=== PATIENT | female | born 1980 | race African-American/Black ===

== ENCOUNTER 2018-09-17 15:15 | Emergency (ER) | payer MEDICAID ==
[2018-09-17] MEDS ORDERED: Acetaminophen/HYDROcodone 325-5 MG Tab PO ONE (15:51)
--- NOTE | 2018-09-17 16:06 | EDM.PDOC ---
ED HPI GENERAL MEDICAL PROBLEM - General Chief Complaint: Skin Complaint Stated Complaint: SWOLLEN ARM Time Seen by Provider: 09/17/18 15:35 Source of Information: Reports: Patient History Limitations: Reports: No Limitations - History of Present Illness INITIAL COMMENTS - FREE TEXT/NARRATIVE: Patient is a 38-year-old female who presents to the ED complaining of swelling, redness, and pain to the right arm adjacent to the elbow and triceps. States she had some sores to the inferior border of the tricep and was scratching them yesterday. Developed all symptoms over the past 24hrs. Pain with palpation. No pain with flexion/extension at the elbow. There has been no drainage from the site. She denies any redness streaking up her arm. No shortness of breath, no chest pain, no history of DVT or PE. She is on no control. She admits to smoking one pack every 2 days. Right Elbow Pain Score (Numeric/FACES): 3 - Related Data Allergies Allergy/AdvReac Type Severity Reaction Status Date / Time No Known Allergies Allergy Verified 09/17/18 15:34 Home Meds: Home Meds cephALEXin [Keflex] 500 mg PO Q8H #30 cap 09/17/18 [Rx] Past Medical History - Past Health History Medical/Surgical History: Denies Medical/Surgical History Social & Family History - Tobacco Use Smoking Status *Q: Current Every Day Smoker Years of Tobacco use: 20 Packs/Tins Daily: 0.5 - Recreational Drug Use Recreational Drug Use: No ED ROS GENERAL - Review of Systems Review Of Systems: See Below Constitutional: Denies: Fever, Chills, Malaise, Weakness, Decreased Appetite HEENT: Reports: No Symptoms Respiratory: Reports: No Symptoms Cardiovascular: Reports: No Symptoms Musculoskeletal: Reports: Arm Pain. Denies: Neck Pain, Shoulder Pain Skin: Reports: Erythema ED EXAM, SKIN/RASH Exam: See Below Exam Limited By: No Limitations General Appearance: Alert, WD/WN, No Apparent Distress Ears: Hearing Grossly Normal Nose: Normal Inspection Throat/Mouth: Normal Voice, No Airway Compromise Head: Atraumatic, Normocephalic Neck: Normal Inspection, Supple Respiratory/Chest: No Respiratory Distress, Lungs Clear, Normal Breath Sounds, No Accessory Muscle Use, Chest Non-Tender Cardiovascular: Normal Peripheral Pulses, Regular Rate, Rhythm, No Murmur Peripheral Pulses: 2+: Radial (L), Radial (R) Back Exam: Normal Inspection Extremities: Normal Range of Motion, Other (On examination patient has some old lesions to the inferior border of the triceps proximal to the elbow with increased swelling, redness sick encompassing the superior border of the olecranon, tricep, and lateral medial aspect the arm. Redness extends to the medial aspect of the forearm. No draining lesions noted. No fluctuance. ) Neurological: Alert, Oriented, CN II-XII Intact, Normal Cognition, No Motor/ Sensory Deficits Psychiatric: Normal Affect, Normal Mood Skin: Warm, Dry, Intact, Normal Color Course - Vital Signs Last Recorded V/S: Last Vital Signs Temp 97 F 09/17/18 15:32 Pulse 84 09/17/18 15:32 Resp 16 09/17/18 15:32 BP 130/120 H 09/17/18 15:32 Pulse Ox 98 09/17/18 15:32 - Orders/Labs/Meds Labs: Laboratory Tests 09/17/18 09/17/18 09/17/18 Range/Units 16:10 16:10 16:10 WBC 11.21 H (3.98-10.04) K/mm3 RBC 5.18 (3.98-5.22) M/mm3 Hgb 13.2 (11.2-15.7) gm/L Hct 41.7 (34.1-44.9) % MCV 80.5 (79.4-94.8) fl MCH 25.5 L (25.6-32.2) pg MCHC 31.7 L (32.2-35.5) g/dl RDW Std Deviation 49.3 H (36.4-46.3) fL Plt Count 314 (182-369) K/mm3 MPV 10.7 (9.4-12.3) fl Neutrophils % (Manual) 73 H (40-60) % Band Neutrophils % 0 (0-10) % Lymphocytes % (Manual) 26 (20-40) % Atypical Lymphs % 0 % Monocytes % (Manual) 0 L (2-10) % Eosinophils % (Manual) 1 (0.7-5.8) % Basophils % (Manual) 0 L (0.1-1.2) Platelet Estimate Adequate RBC Morph Comment Normal PT 10.8 (9.5-12.1) SECONDS INR 0.99 APTT 31 (24-31) SECONDS Sodium 137 (136-145) mEq/L Potassium 4.0 (3.5-5.1) mEq/L Chloride 105 (98-107) mEq/L Carbon Dioxide 21 (21-32) mEq/L Anion Gap 15.0 (5-15) BUN 15 (7-18) mg/dL Creatinine 0.8 (0.55-1.02) mg/dL Est Cr Clr Drug Dosing 94.54 mL/min Estimated GFR (MDRD) > 60 (>60) mL/min BUN/Creatinine Ratio 18.8 H (14-18) Glucose 84 (74-106) mg/dL Calcium 9.0 (8.5-10.1) mg/dL Total Bilirubin 0.4 (0.2-1.0) mg/dL AST 14 L (15-37) U/L ALT 24 (14-59) U/L Alkaline Phosphatase 78 (46-116) U/L C-Reactive Protein 2.1 H* (<1.0) mg/dL Total Protein 7.7 (6.4-8.2) g/dl Albumin 3.4 (3.4-5.0) g/dl Globulin 4.3 gm/dL Albumin/Globulin Ratio 0.8 L (1-2) HCG, Qual (NEGATIVE) 09/17/18 Range/Units 16:10 WBC (3.98-10.04) K/mm3 RBC (3.98-5.22) M/mm3 Hgb (11.2-15.7) gm/L Hct (34.1-44.9) % MCV (79.4-94.8) fl MCH (25.6-32.2) pg MCHC (32.2-35.5) g/dl RDW Std Deviation (36.4-46.3) fL Plt Count (182-369) K/mm3 MPV (9.4-12.3) fl Neutrophils % (Manual) (40-60) % Band Neutrophils % (0-10) % Lymphocytes % (Manual) (20-40) % Atypical Lymphs % % Monocytes % (Manual) (2-10) % Eosinophils % (Manual) (0.7-5.8) % Basophils % (Manual) (0.1-1.2) Platelet Estimate RBC Morph Comment PT (9.5-12.1) SECONDS INR APTT (24-31) SECONDS Sodium (136-145) mEq/L Potassium (3.5-5.1) mEq/L Chloride (98-107) mEq/L Carbon Dioxide (21-32) mEq/L Anion Gap (5-15) BUN (7-18) mg/dL Creatinine (0.55-1.02) mg/dL Est Cr Clr Drug Dosing mL/min Estimated GFR (MDRD) (>60) mL/min BUN/Creatinine Ratio (14-18) Glucose (74-106) mg/dL Calcium (8.5-10.1) mg/dL Total Bilirubin (0.2-1.0) mg/dL AST (15-37) U/L ALT (14-59) U/L Alkaline Phosphatase (46-116) U/L C-Reactive Protein (<1.0) mg/dL Total Protein (6.4-8.2) g/dl Albumin (3.4-5.0) g/dl Globulin gm/dL Albumin/Globulin Ratio (1-2) HCG, Qual Negative (NEGATIVE) Meds: Medications Discontinued Medications Generic Name Dose Route Start Last Admin Trade Name Freq PRN Reason Stop Dose Admin Hydrocodone Bitart/Acetaminophen 1 tab 09/17/18 15:51 09/17/18 16:00 Loman 325-5 Mg PO 09/17/18 15:52 1 tab ONETIME ONE Administration Cefazolin Sodium 1 gm 09/17/18 17:28 Ancef IM 09/17/18 17:29 ONETIME ONE Cephalexin 500 mg 09/17/18 17:28 Keflex PO 09/17/18 17:29 ONETIME ONE - Re-Assessments/Exams Free Text/Narrative Re-Assessment/Exam: I suspect patient has cellulitis to the right arm. Will rule out DVT with ultrasound. Area was marked out. Labs have been ordered. Labs reviewed with no concerns noted. Ultrasound of the right upper extremity: Minimal soft tissue edema. Lymph nodes within the upper extremity which are felt to be incidental. No evidence of venous thrombosis within the right upper extremity. Order Ancef 1 g IM and keflex 500mg PO. Suspect cause of infection is strep since no abscess/draining lesion noted. Return precautions discussed with patient. Discharge instructions as documented. Departure - Departure Time of Disposition: 17:32 Disposition: Home, Self-Care 01 Condition: Good Clinical Impression: Cellulitis Qualifiers: Site of cellulitis: extremity Site of cellulitis of extremity: upper extremity Laterality: right Qualified Code(s): L03.113 - Cellulitis of right upper limb - Discharge Information Prescriptions: cephALEXin [Keflex] 500 mg PO Q8H #30 cap Instructions: Cellulitis, Adult Referrals: PCP,Unknown [Ordering Only Provider] - Forms: ED Department Discharge, ED Return to Work/School Form Additional Instructions: Take the Keflex as prescribed. Utilize oral probiotic if experience any diarrhea while taking this medication. Apply warm compresses to the affected area 3 times a day, 30 minutes in duration, if any area started to drain keep covered. Utilize Tylenol and ibuprofen in alternating fashion for pain. Please return back to ED if you develop any new or worsening symptoms. Of note redness and discomfort may worsen over the next 24 hours. Should see improvement by 48 hrs.
--- NOTE | 2018-09-17 17:21 | US ---
Right upper extremity venous ultrasound: Duplex and color flow imaging was obtained of the right internal jugular, subclavian, axillary, brachial, cephalic, basilic, radial and ulnar veins. Normal compression and phasic flow is seen. Augmentation seen within the axillary through ulnar veins. Incidental lymph nodes noted within the upper arm. Minimal soft tissue edema is seen. Impression: 1. Minimal soft tissue edema. 2. Lymph nodes within the upper extremity which are felt to be incidental. 3. No evidence of venous thrombosis within the right upper extremity. Diagnostic code #2
[2018-09-17] MEDS ORDERED: Cephalexin 500 MG Cap PO ONE (17:28)
[2018-09-17] MEDS ORDERED: ceFAZolin 1 GM Vial IM ONE (17:28)
== END 2018-09-17 17:52 | disposition home or self-care (01) ==
LOC: JD.ED 15:15
DX: L03.113 Cellulitis of right upper limb (principal); F17.210 Nicotine dependence, cigarettes, uncomplicated
CPT/HCPCS: 36415; 80053; 84703; 85007; 85027; 85610; 85730; 86140; 93971; 96372; 99284; A9270; J0690; 99283

== ENCOUNTER 2018-09-19 08:33 | Emergency (ER) | payer MEDICAID ==
--- NOTE | 2018-09-19 08:50 | EDM.PDOC ---
ED HPI GENERAL MEDICAL PROBLEM - General Chief Complaint: Upper Extremity Injury/Pain Stated Complaint: SWOLLEN ARM NOT BETTER Time Seen by Provider: 09/19/18 08:50 Source of Information: Reports: Patient History Limitations: Reports: No Limitations - History of Present Illness INITIAL COMMENTS - FREE TEXT/NARRATIVE: 38-year-old female presents to the ED with increased pain swelling right elbow and forearm. She states started with a small pimple 2 days ago and then blossomed fairly quickly into a area of redness and swelling and increased pain. She was seen in the ED the same day and identified to have cellulitis. She had an ultrasound of her axillary vein to make sure there was no DVT. It was negative. She was started on Cephalexin 500mg tid after receiving 1 g of Ancef IV. She states that the swelling and redness has increased over the last 36 hours. She feels ill or fluish. Perhaps low-grade fever. He is using Tylenol for pain relief. States this morning she woke up with her right eye swollen and purulent drainage. She works in [employer] and therefore could not go to work because of her right arm pain and her eyes swelling and infection. She to her knowledge is not diabetic. Onset: Sudden Onset Date: 09/17/18 (Started out as a small red pimple posterior elbow and she thought she had scratched there are a few days prior. Over the ensuing 8-12 hours at increased in size and pain intensity.) Duration: Day(s):, Getting Worse Location: Reports: Upper Extremity, Right (Right elbow and proximal forearm.) Quality: Reports: Ache, Throbbing Severity: Moderate Improves with: Reports: Rest Worsens with: Reports: Movement (She can straighten it out but prefers to keep it in flexion.) Context: Reports: Other (Possible scratch the area of week ago.). 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, Other (see below) (She is on cephalexin 500 mg 3 times a day) Right Elbow Pain Score (Numeric/FACES): 8 - Related Data Allergies Allergy/AdvReac Type Severity Reaction Status Date / Time No Known Allergies Allergy Verified 09/19/18 08:44 Home Meds: Home Meds cephALEXin [Keflex] 500 mg PO Q8H #30 cap 09/17/18 [Rx] Clindamycin HCl 300 mg PO TID #18 capsule 09/19/18 [Rx] Doxycycline [Vibramycin] 100 mg PO BID #20 cap 09/19/18 [Rx] Past Medical History - Past Health History Medical/Surgical History: Denies Medical/Surgical History Social & Family History - Living Situation & Occupation Living situation: Reports: Single Occupation: Employed Review of Systems - Review of Systems Review Of Systems: See Below Constitutional: Reports: Fever, Weakness, Other (Feels ill.) Eyes: Reports: Drainage Ears: Reports: No Symptoms Nose: Reports: No Symptoms Mouth/Throat: Reports: No Symptoms Respiratory: Reports: Other (Dyspnea on exertion.) Cardiovascular: Reports: No Symptoms GI/Abdominal: Reports: No Symptoms Genitourinary: Reports: No Symptoms Musculoskeletal: Reports: Other Skin: Reports: Other (Painful right elbow and proximal forearm 2 days. Tracing erythema swelling around the posterior right elbow with a few scratches in this area.) Neurological: Reports: No Symptoms ( It also extends to the proximal forearm.) Psychiatric: Reports: No Symptoms ED EXAM, GENERAL - Physical Exam Exam: See Below Exam Limited By: No Limitations General Appearance: Alert, Other (Right upper eyelid is swollen as compared to the left eye edematous.) Eye Exam: Right Eye: Conjunctival Injection ((Margin is very erythematous with slight purulent exudate.), Periorbital Changes (Right upper eyelid is edematous and swollen. No stye present) Throat/Mouth: Normal Inspection, Normal Lips, Normal Oropharynx Head: Atraumatic, Normocephalic Neck: Normal Inspection, Supple, Non-Tender, Full Range of Motion. No: Lymphadenopathy (L), Lymphadenopathy (R) Respiratory/Chest: No Respiratory Distress, Lungs Clear, Normal Breath Sounds, No Accessory Muscle Use Cardiovascular: Normal Peripheral Pulses, Regular Rate, Rhythm, No Edema, No Gallop, No Murmur, No Rub Peripheral Pulses: 2+: Posterior Tibial (L), Posterior Tibial (R), Dorsalis Pedis (L), Dorsalis Pedis (R) GI/Abdominal: Normal Bowel Sounds, Soft, Non-Tender, Other Back Exam: Normal Inspection, Full Range of Motion. No: CVA Tenderness (L), CVA Tenderness (R) Extremities: Limited Range of Motion (Right elbow), Increased Warmth (Right posterior elbow), Other (Patient has an area of cellulitis that extends half-way up her posterior arm starting around the elbow and involves the proximal one third of the extensor surface of her forearm. It is mildly erythematous. She is heavily tattooed in her forearm and on the tattoos are normal. There are a few scratches in the posterior aspect of the elbow which may have acted as a nidus for source of infection. Suspect MRSA there are no open wounds or drainage to culture. The posterior right elbow skin is swollen half-way up the arm) Neurological: Alert, Oriented, CN II-XII Intact, Normal Cognition Psychiatric: Normal Affect, Normal Mood Skin Exam: Warm, Dry, Intact, Normal Color, Erythema (And swelling posterior aspect of right elbow) Course - Vital Signs Last Recorded V/S: Last Vital Signs Temp 36.4 C 09/19/18 11:25 Pulse 76 09/19/18 11:25 Resp 16 09/19/18 11:25 BP 107/66 09/19/18 11:25 Pulse Ox 99 09/19/18 11:25 - Orders/Labs/Meds Orders: Active Orders 24 hr Category Date Time Status Peripheral IV Care [RC] . DIRECTED Care 09/19/18 08:56 Active Peripheral IV Insertion Adult [OM.PC] Stat Oth 09/19/18 08:56 Ordered Labs: Laboratory Tests 09/19/18 09/19/18 09/19/18 Range/Units 09:05 09:05 09:05 WBC 8.09 (3.98-10.04) K/mm3 RBC 5.45 H (3.98-5.22) M/mm3 Hgb 13.8 (11.2-15.7) gm/L Hct 44.5 (34.1-44.9) % MCV 81.7 (79.4-94.8) fl MCH 25.3 L (25.6-32.2) pg MCHC 31.0 L (32.2-35.5) g/dl RDW Std Deviation 51.8 H (36.4-46.3) fL Plt Count 354 (182-369) K/mm3 MPV 11.0 (9.4-12.3) fl Neutrophils % (Manual) 75 H (40-60) % Band Neutrophils % 0 (0-10) % Lymphocytes % (Manual) 17 L (20-40) % Atypical Lymphs % 0 % Monocytes % (Manual) 5 (2-10) % Eosinophils % (Manual) 3 (0.7-5.8) % Basophils % (Manual) 0 L (0.1-1.2) Platelet Estimate Adequate RBC Morph Comment Normal Sodium 139 (136-145) mEq/L Potassium 4.2 (3.5-5.1) mEq/L Chloride 105 (98-107) mEq/L Carbon Dioxide 26 (21-32) mEq/L Anion Gap 12.2 (5-15) BUN 11 (7-18) mg/dL Creatinine 0.9 (0.55-1.02) mg/dL Est Cr Clr Drug Dosing 84.03 mL/min Estimated GFR (MDRD) > 60 (>60) mL/min BUN/Creatinine Ratio 12.2 L (14-18) Glucose 110 H (74-106) mg/dL Hemoglobin A1c 5.90 (4.50-6.20) % Calcium 9.0 (8.5-10.1) mg/dL Total Bilirubin 0.4 (0.2-1.0) mg/dL AST 14 L (15-37) U/L ALT 24 (14-59) U/L Alkaline Phosphatase 78 (46-116) U/L C-Reactive Protein 2.9 H* (<1.0) mg/dL Total Protein 8.0 (6.4-8.2) g/dl Albumin 3.4 (3.4-5.0) g/dl Globulin 4.6 gm/dL Albumin/Globulin Ratio 0.7 L (1-2) Meds: Medications Discontinued Medications Generic Name Dose Route Start Last Admin Trade Name Freq PRN Reason Stop Dose Admin Doxycycline Hyclate 200 mg 09/19/18 08:57 09/19/18 09:31 Vibramycin PO 09/19/18 08:58 200 mg ONETIME ONE Administration Gentamicin Sulfate 2.5 ml 09/19/18 09:00 09/19/18 09:33 Garamycin 0.3% Ophth Soln EYERT 09/19/18 09:01 2 drop ONETIME ONE Administration Clindamycin Phosphate 900 mg/ 106 mls @ 200 mls/hr 09/19/18 08:56 09/19/18 09 :32 Sodium Chloride IV 09/19/18 09:27 Not Given ONETIME ONE Linezolid 600 mg/ Premix 300 mls @ 300 mls/hr 09/19/18 08:58 09/19/18 09:25 IV 09/19/18 09:57 300 mls/hr ONETIME ONE Administration Ketorolac Tromethamine 30 mg 09/19/18 09:00 09/19/18 09:18 Toradol IVPUSH 30 mg ONETIME HALLE Administration Sodium Chloride 10 ml 09/19/18 08:56 09/19/18 09:05 Saline Flush FLUSH 10 ml ASDIRECTED PRN Administration Keep Vein Open - Radiology Interpretation Free Text/Narrative:: 38-year-old female presents to the ED with worsening pain swelling and erythema of her right posterior elbow. She states that when she went to work on Monday morning 2 days ago she had A's small painful area which felt more like a papule on the posterior aspect of her right elbow. Over this but 8-10 hours it blossomed and became much more swollen and painful. She was seen in the ED same day and diagnosed with cellulitis of the posterior elbow area. She received Ancef 1 g IV and started on cephalexin 500 mg 3 times a day. She also had an ultrasound performed at that time to make sure that she did not have a DVT and none was found in the right axillary vein. On exam today she has marked swelling redness and evidence of cellulitis involving the posterior aspect of elbow traveling half-way up her posterior right arm and involving proximal one third of her extensor surface of forearm. Appears that the likely staph infection is resistant to cephalexin. She also has a acute right bacterial conjunctivitis with swelling of the upper eyelid and purulent discharge. This will be treated with gentamicin her Garamycin ophthalmic drops starting in the ED. 2 drops now. She will have routine lab work performed to compare to labs drawn on Monday. She is afebrile and therefore blood cultures will not be done. She's also been on antibiotic which would likely lend itself to negative for culture testing. I suspect she may well have MRSA. We'll treat her with a dose of Zyvox 600 mg IV. And then 200 mg of doxycycline orally. Plan will be to discharge her on doxycycline 100 mg twice a day for the next 10 days. We'll give her a dose of Toradol 30 mg IV for pain relief. - Re-Assessments/Exams Free Text/Narrative Re-Assessment/Exam: 09/19/18 11:10 Labs reveal a normal white count at 8.09. 75% neutrophils with no band cells. Hemoglobin is 13.8 with hematocrit of 44.5. Platelet count is 354 ,000. Sodium 139 with a potassium of 4.2. Cord 105 with a bicarbonate 26. And a gap is 12.2. BUN is 11 with a creatinine of 0.9. Estimated GFR is greater than 60. Glucose is 110 . Calcium is 9.0. Liver function is normal. C-reactive protein is mildly elevated at 2.9. Total protein is 8.0 with an albumin fraction of 3.4. Patient is completed her IV Zyvox at this time. She will be discharged home on doxycycline 100 mg twice daily for 10 days and clindamycin 300 mg 3 times a day for 6 days. Continue Garamycin eyedrops 2 drops to the right eye 4 times daily for the next 4 days to clear up right eye infection. Departure - Departure Time of Disposition: 11:13 Disposition: Home, Self-Care 01 Condition: Fair Clinical Impression: Bacterial conjunctivitis of right eye, Cellulitis of right elbow - Discharge Information *PRESCRIPTION DRUG MONITORING PROGRAM REVIEWED*: Not Applicable *COPY OF PRESCRIPTION DRUG MONITORING REPORT IN PATIENT RANDY: Not Applicable Prescriptions: Clindamycin HCl 300 mg PO TID #18 capsule Doxycycline [Vibramycin] 100 mg PO BID #20 cap Instructions: Bacterial Conjunctivitis, [id number], Cellulitis, Adult Referrals: PCP,Unknown [Ordering Only Provider] - Forms: ED Department Discharge, ED Return to Work/School Form Additional Instructions: Evaluation the emergency room this morning for 2 reasons element of swelling right upper eyelid with purulent discharge noted this morning compared with a bacterial conjunctivitis. He was started on gentamicin eyedrops in the ED 2 drops and these are to be taken 2 drops 4 times daily for the next 4 days to clear up infection completely. Noted is very contagious and if it starts to show any signs or symptoms in her left eye you are to put 2 drops in immediately as well. The second problem was development of cellulitis of your right upper arm particularly around the elbow and now proximal forearm. It's worse than it was 2 days ago and therefore appears that the metabolic you're on is not effective in controlling the infection. Therefore you are to stop your cephalexin. Been a dose of IV Zyvox while in the ED. Also given initial dose of doxycycline 200 mg by mouth. Treatment at home is doxycycline 100 mg twice daily for the next 10 days with first tablet due tonight after supper. Also start clindamycin 300 mg 3 times daily starting tonight at supper. This medicine will be taken for 6 days. He should notice marked improvement in swelling redness of the right elbow over the next 36-48 hours. Note given to excuse her from the workplace today tentatively May return to work tomorrow. - My Orders Last 24 Hours: My Active Orders 09/19/18 08:56 Peripheral IV Care [RC] . DIRECTED Peripheral IV Insertion Adult [OM.PC] Stat - Assessment/Plan Last 24 Hours: My Active Orders 09/19/18 08:56 Peripheral IV Care [RC] . DIRECTED Peripheral IV Insertion Adult [OM.PC] Stat
[2018-09-19] MEDS ORDERED: Clindamycin Phosphate 900 MG in Sodium Chloride 0.9% 100 ML IV ONE (08:56)
[2018-09-19] MEDS ORDERED: Sodium Chloride 0.9% 10 ML Syringe FLUSH PRN (08:56)
[2018-09-19] MEDS ORDERED: Doxycycline 100 MG Cap PO ONE (08:57)
[2018-09-19] MEDS ORDERED: Linezolid 600 MG in Premix Bag 1 BAG IV ONE (08:58)
[2018-09-19] MEDS ORDERED: Gentamicin 0.3% Ophth Soln 5 ML Bottle EYERT ONE (09:00)
[2018-09-19] MEDS ORDERED: Ketorolac 30 MG/ML SDV IVPUSH SCH (09:00)
[2018-09-19 12:29] LABS: HEMOGLOBIN A1C 5.9 % (4.50-6.20)
== END 2018-09-19 11:30 | disposition home or self-care (01) ==
LOC: JD.ED 08:33
DX: L03.113 Cellulitis of right upper limb (principal); H10.9 Unspecified conjunctivitis
CPT/HCPCS: 36415; 80053; 83036; 85007; 85027; 86140; 96365; 96375; 99283; A9270; J1885; J2020; 99284

== ENCOUNTER 2019-09-12 14:22 | Emergency (ER) | payer BC, MEDICAID ==
--- NOTE | 2019-09-12 15:17 | EDM.PDOC ---
ED HPI GENERAL MEDICAL PROBLEM - General Chief Complaint: Genitourinary Problem Stated Complaint: PAIN WHILE URINATING Time Seen by Provider: 09/12/19 14:31 Source of Information: Reports: Patient History Limitations: Reports: No Limitations - History of Present Illness INITIAL COMMENTS - FREE TEXT/NARRATIVE: Patient is a 39-year-old female who presents with complaints of frequency and burning with urination, vaginal itching, and a yellowish vaginal discharge. She does not have a history of urinary tract infections. She states she did have a questionable sexual contact approximately 1 month ago. This is not a monogamous relationship and she did not use protection. She denies any significant abdominal cramping or pelvic pain. However she states she does have occasional spasms when she urinates. Denies any back pain, fever, chills, nausea, or vomiting. 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 Dermatologic History: Reports: Cellulitis - Infectious Disease History Infectious Disease History: Reports: Other (See Below) Other Infectious Disease History: cellulitis - Past Surgical History Female Surgical History: Reports: Section Social & Family History - Tobacco Use Smoking Status *Q: Current Every Day Smoker Years of Tobacco use: 20 Packs/Tins Daily: 1 - Caffeine Use Caffeine Use: Reports: Coffee - Recreational Drug Use Recreational Drug Use: No - Living Situation & Occupation Living situation: Reports: Single Occupation: Employed ED ROS GENERAL - Review of Systems Review Of Systems: Comprehensive ROS is negative, except as noted in HPI. ED EXAM, RENAL/ - Physical Exam Exam: See Below Exam Limited By: No Limitations General Appearance: Alert, WD/WN, No Apparent Distress Respiratory/Chest: No Respiratory Distress, Lungs Clear, Normal Breath Sounds, No Accessory Muscle Use, Chest Non-Tender Cardiovascular: Normal Peripheral Pulses, Regular Rate, Rhythm, No Edema, No Gallop, No JVD, No Murmur, No Rub (Female) Exam: Normal External Exam, Normal Bimanual Exam, Vaginal Discharge (Grayish-white). No: Vaginal Bleeding (Thick yellowish-white), Vaginal Lesions Back Exam: Normal Inspection, Full Range of Motion. No: CVA Tenderness (L), CVA Tenderness (R) Neurological: Alert, Oriented, CN II-XII Intact, Normal Cognition, Normal Gait, Normal Reflexes, No Motor/Sensory Deficits Psychiatric: Normal Affect, Normal Mood Skin Exam: Warm, Dry, Intact, Normal Color, No Rash Course - Vital Signs Last Recorded V/S: Last Vital Signs Temp 97.5 F 09/12/19 16:29 Pulse 78 09/12/19 16:29 Resp 20 09/12/19 16:29 BP 150/100 H 09/12/19 16:29 Pulse Ox 100 09/12/19 16:29 - Orders/Labs/Meds Orders: Active Orders 24 hr Category Date Time Status CULTURE URINE [RM] Stat Lab 09/12/19 14:50 Received Labs: Laboratory Tests 09/12/19 09/12/19 09/12/19 Range/Units 14:50 15:30 15:30 WBC 11.29 H (3.98-10.04) K/mm3 RBC 5.26 H (3.98-5.22) M/mm3 Hgb 14.0 (11.2-15.7) gm/dl Hct 45.1 H (34.1-44.9) % MCV 85.7 D (79.4-94.8) fl MCH 26.6 (25.6-32.2) pg MCHC 31.0 L (32.2-35.5) g/dl RDW Std Deviation 51.4 H (36.4-46.3) fL Plt Count 330 (182-369) K/mm3 MPV 10.4 (9.4-12.3) fl Neut % (Auto) 68.9 (34.0-71.1) % Lymph % (Auto) 23.8 (19.3-51.7) % [place] % (Auto) 5.9 (4.7-12.5) % Eos % (Auto) 0.9 (0.7-5.8) Baso % (Auto) 0.2 (0.1-1.2) % Neut # (Auto) 7.78 H (1.56-6.13) K/mm3 Lymph # (Auto) 2.69 (1.18-3.74) K/mm3 [place] # (Auto) 0.67 H (0.24-0.36) K/mm3 Eos # (Auto) 0.10 (0.04-0.36) K/mm3 Baso # (Auto) 0.02 (0.01-0.08) K/mm3 Manual Slide Review Abnormal smear Sodium 141 (136-145) mEq/L Potassium 3.8 (3.5-5.1) mEq/L Chloride 103 (98-107) mEq/L Carbon Dioxide 28 (21-32) mEq/L Anion Gap 13.8 (5-15) BUN 13 (7-18) mg/dL Creatinine 1.0 (0.55-1.02) mg/dL Est Cr Clr Drug Dosing 74.90 mL/min Estimated GFR (MDRD) > 60 (>60) mL/min BUN/Creatinine Ratio 13.0 L (14-18) Glucose 98 (74-106) mg/dL Calcium 8.6 (8.5-10.1) mg/dL Total Bilirubin 0.3 (0.2-1.0) mg/dL AST 14 L (15-37) U/L ALT 19 (14-59) U/L Alkaline Phosphatase 81 (46-116) U/L Total Protein 7.8 (6.4-8.2) g/dl Albumin 3.4 (3.4-5.0) g/dl Globulin 4.4 gm/dL Albumin/Globulin Ratio 0.8 L (1-2) Urine Color Yellow (Yellow) Urine Appearance Cloudy H (Clear) Urine pH 6.0 (5.0-8.0) Ur Specific [place] > or = 1.030 (1.005-1.030) Urine Protein Trace H (Negative) Urine Glucose (UA) Negative (Negative) Urine Ketones Negative (Negative) Urine Occult Blood Trace-intact H (Negative) Urine Nitrite Negative (Negative) Urine Bilirubin Negative (Negative) Urine Urobilinogen 0.2 (0.2-1.0) Ur Leukocyte Esterase 1+ H (Negative) Urine RBC 20-30 H (0-5) /hpf Urine WBC 40-50 H (0-5) /hpf Ur Squamous Epith Cells 10-20 H (0-5) /hpf Urine Bacteria Few (FEW) /hpf Urine Mucus Few (FEW) /hpf C trachomatis DNA (PCR) N gonorrhoeae DNA (PCR) 09/12/19 Range/Units 15:46 WBC (3.98-10.04) K/mm3 RBC (3.98-5.22) M/mm3 Hgb (11.2-15.7) gm/dl Hct (34.1-44.9) % MCV (79.4-94.8) fl MCH (25.6-32.2) pg MCHC (32.2-35.5) g/dl RDW Std Deviation (36.4-46.3) fL Plt Count (182-369) K/mm3 MPV (9.4-12.3) fl Neut % (Auto) (34.0-71.1) % Lymph % (Auto) (19.3-51.7) % [place] % (Auto) (4.7-12.5) % Eos % (Auto) (0.7-5.8) Baso % (Auto) (0.1-1.2) % Neut # (Auto) (1.56-6.13) K/mm3 Lymph # (Auto) (1.18-3.74) K/mm3 [place] # (Auto) (0.24-0.36) K/mm3 Eos # (Auto) (0.04-0.36) K/mm3 Baso # (Auto) (0.01-0.08) K/mm3 Manual Slide Review Sodium (136-145) mEq/L Potassium (3.5-5.1) mEq/L Chloride (98-107) mEq/L Carbon Dioxide (21-32) mEq/L Anion Gap (5-15) BUN (7-18) mg/dL Creatinine (0.55-1.02) mg/dL Est Cr Clr Drug Dosing mL/min Estimated GFR (MDRD) (>60) mL/min BUN/Creatinine Ratio (14-18) Glucose (74-106) mg/dL Calcium (8.5-10.1) mg/dL Total Bilirubin (0.2-1.0) mg/dL AST (15-37) U/L ALT (14-59) U/L Alkaline Phosphatase (46-116) U/L Total Protein (6.4-8.2) g/dl Albumin (3.4-5.0) g/dl Globulin gm/dL Albumin/Globulin Ratio (1-2) Urine Color (Yellow) Urine Appearance (Clear) Urine pH (5.0-8.0) Ur Specific [place] (1.005-1.030) Urine Protein (Negative) Urine Glucose (UA) (Negative) Urine Ketones (Negative) Urine Occult Blood (Negative) Urine Nitrite (Negative) Urine Bilirubin (Negative) Urine Urobilinogen (0.2-1.0) Ur Leukocyte Esterase (Negative) Urine RBC (0-5) /hpf Urine WBC (0-5) /hpf Ur Squamous Epith Cells (0-5) /hpf Urine Bacteria (FEW) /hpf Urine Mucus (FEW) /hpf C trachomatis DNA (PCR) Not detected N gonorrhoeae DNA (PCR) Not detected - Re-Assessments/Exams Free Text/Narrative Re-Assessment/Exam: 09/12/19 18:03 Otology was significant for a white count slightly elevated 11.29 but was otherwise unremarkable. Also showed 1+ leukocyte esterase, 20-30 RBCs, 40-50 WBCs, and 10-20 squamous cells. This is concerning for urinary tract infection. GC chlamydia was negative. Wet prep did show clue cells indicating the patient has bacterial vaginosis. We will treat with clindamycin to cover for both a urinary tract infection and bacterial vaginosis. I will recommend that she take a daily probiotic as well. Discharge instructions as documented. Departure - Departure Time of Disposition: 18:03 Disposition: Home, Self-Care 01 Condition: Good Clinical Impression: UTI, Urinary tract infectious disease, Bacterial vaginosis - Discharge Information *PRESCRIPTION DRUG MONITORING PROGRAM REVIEWED*: No *COPY OF PRESCRIPTION DRUG MONITORING REPORT IN PATIENT RANDY: No Prescriptions: Clindamycin HCl 300 mg PO Q8H #21 capsule Instructions: Bacterial Vaginosis, [id number], Urinary Tract Infection, Adult Referrals: PCP,None [Primary Care Provider] - Forms: ED Department Discharge Additional Instructions: You were seen in the emergency department today for burning with urination, as well as abnormal vaginal discharge. Blood work, urinalysis, and vaginal swabs were completed. Your work-up showed that you have a urinary tract infection, as well as bacterial vaginosis. You have been started on clindamycin, which is an antibiotic that would cover for both of these conditions. Take this medication as prescribed. Ensure that you finish the entire course of the medication even if you are feeling better. Recommend that you take an over-the- counter probiotic with this to prevent diarrhea. If you should experience any new or concerning symptoms, please not hesitate to return to the emergency department. Sepsis Event Note - Evaluation Sepsis Screening Result: No Definite Risk - Focused Exam Vital Signs: Vital Signs Temp Pulse Resp BP Pulse Ox 09/12/19 16:29 97.5 F 78 20 150/100 H 100 09/12/19 14:43 97.5 F 89 16 153/98 H 98 Date Exam was Performed: 09/12/19 Time Exam was Performed: 19:20 - My Orders Last 24 Hours: My Active Orders 09/12/19 14:50 CULTURE URINE [RM] Stat - Assessment/Plan Last 24 Hours: My Active Orders 09/12/19 14:50 CULTURE URINE [RM] Stat
[2019-09-12 17:44] LABS: C. TRACHOMATIS BY PCR NOT DETECTED; N. GONORRHOEAE BY PCR NOT DETECTED
== END 2019-09-12 18:20 | disposition home or self-care (01) ==
LOC: JD.ED 14:22
DX: N76.0 Acute vaginitis (principal); N39.0 Urinary tract infection, site not specified; I10 Essential (primary) hypertension; F17.210 Nicotine dependence, cigarettes, uncomplicated
CPT/HCPCS: 36415; 80053; 81001; 85025; 87086; 87210; 87491; 87591; 87808; 99282; 99283

== ENCOUNTER 2019-10-18 06:56 | Emergency (ER) | payer BC ==
--- NOTE | 2019-10-18 07:25 | EDM.PDOC ---
ED HPI GENERAL MEDICAL PROBLEM - General Chief Complaint: Gastrointestinal Problem Stated Complaint: NAUSEA/DIARRHEA/ABDOMINAL PAIN Time Seen by Provider: 10/18/19 07:19 Source of Information: Reports: Patient History Limitations: Reports: No Limitations - History of Present Illness INITIAL COMMENTS - FREE TEXT/NARRATIVE: 39-year-old female presents to the ED with a 2-1/2-day history of diffuse abdominal cramping pain associated with loose diarrheal stools. Stools tend to be yellow and watery and of small content. States initially they were fairly large content. She feels nauseated but has never vomited. She states illness started after eating out at a local [employer]. Intermittent chills but no defined fever. No blood in the stool. Was on antibiotics about 4 weeks ago for urinary tract infection but never developed any diarrhea while on antibiotics. Has been staying on clear fluid diet i.e. water and Gatorade for the last 2 days. He was up 4 times during the night with diarrhea stools. Her children do not not have similar illness. Onset: Sudden Onset Date: 10/16/19 Duration: Day(s):, Constant, Intermittent Location: Reports: Abdomen (Diffuse intermittent lower abdominal cramping pain with diarrhea.) Quality: Reports: Other Severity: Moderate (Mid abdominal cramps) Improves with: Reports: None Worsens with: Reports: Eating (Worse if she tries to eat or drink.) Context: Reports: Other (Continuous occurrence). Denies: Activity, Exercise, Lifting, Sick Contact, Trauma Associated Symptoms: Reports: Fever/Chills, Loss of Appetite, Malaise, Nausea/Vomiting ([place] but no fever), Weakness. 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: Other (see below) (None.) Abdominal Pain Score (Numeric/FACES): 10 - Related Data Allergies Allergy/AdvReac Type Severity Reaction Status Date / Time No Known Allergies Allergy Verified 10/18/19 07:10 Home Meds: Home Meds Dicyclomine [Bentyl] 20 mg PO Q6H PRN #8 tablet 10/18/19 [Rx] metroNIDAZOLE [Flagyl] 500 mg PO Q8H #24 tab 10/18/19 [Rx] Past Medical History - Past Health History Medical/Surgical History: Denies Medical/Surgical History 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 Dermatologic History: Reports: Cellulitis - Infectious Disease History Infectious Disease History: Reports: Other (See Below) Other Infectious Disease History: cellulitis - Past Surgical History Female Surgical History: Reports: Section Social & Family History - Tobacco Use Smoking Status *Q: Current Every Day Smoker Years of Tobacco use: 5 Packs/Tins Daily: 0.5 - Caffeine Use Caffeine Use: Reports: None - Recreational Drug Use Recreational Drug Use: No - Living Situation & Occupation Living situation: Reports: Single Occupation: Employed ED ROS GENERAL - Review of Systems Review Of Systems: See Below Constitutional: Reports: Chills, Malaise, Weakness, Fatigue, Decreased Appetite. Denies: Fever HEENT: Reports: No Symptoms Respiratory: Reports: No Symptoms Cardiovascular: Reports: No Symptoms Endocrine: Reports: Fatigue GI/Abdominal: Reports: Abdominal Pain (Remittent abdominal cramping pain usually inferior to the umbilicus associate with diarrhea stools.), Diarrhea (Initially was large quantity yellow stool. Now it is more small quantity yellow stool.), Decreased Appetite, Nausea. Denies: Hematemesis, Hematochezia, Vomiting : Reports: Other (Urine is dark in color.) Musculoskeletal: Reports: No Symptoms Skin: Reports: No Symptoms Neurological: Reports: Dizziness (A little dizzy and lightheaded with standing.) Psychiatric: Reports: No Symptoms Hematologic/Lymphatic: Reports: No Symptoms Immunologic: Reports: No Symptoms ED EXAM, GI/ABD - Physical Exam Exam: See Below Exam Limited By: No Limitations General Appearance: Alert, WD/WN, No Apparent Distress, Other (Temperature is 36.4 pulse is 92 respiratory is 18 with O2 sats of 100% on room air BP is 127/71) Eyes: Bilateral: Normal Appearance (No blepharal pallor or scleral icterus.) Throat/Mouth: Other Head: Atraumatic, Normocephalic (Tongue is mildly dry and coated) Neck: Normal Inspection, Supple, Non-Tender, Full Range of Motion. No: Carotid Bruit, Lymphadenopathy (L), Lymphadenopathy (R), Thyromegaly Respiratory/Chest: No Respiratory Distress, Lungs Clear, Normal Breath Sounds, Chest Non-Tender Cardiovascular: Normal Peripheral Pulses, Regular Rate, Rhythm, No Edema, No Gallop, No JVD, No Murmur, No Rub GI/Abdominal Exam: Normal Bowel Sounds, Soft, Non-Tender, No Organomegaly, No Abnormal Bruit, No Mass, Pelvis Stable, Other (Abdominal girth limits ability to palpate solid organs.) Extremities: Normal Inspection, Normal Range of Motion, Non-Tender, No Pedal Edema Neurological: Alert, Oriented, CN II-XII Intact, Normal Cognition Psychiatric: Normal Affect, Normal Mood Skin Exam: Warm, Dry, Intact, Normal Color, No Rash Course - Vital Signs Last Recorded V/S: Last Vital Signs Temp 36.4 C 10/18/19 07:07 Pulse 92 10/18/19 07:07 Resp 18 10/18/19 07:07 BP 127/71 10/18/19 07:07 Pulse Ox 100 10/18/19 07:07 - Orders/Labs/Meds Orders: Active Orders 24 hr Category Date Time Status C DIFFICILE TOXIN IMMUNOASSAY [MREF] Stat Lab 10/18/19 07:33 Received MISC TEST Stat Lab 10/18/19 07:33 Received Dextrose 5%-Lactated Ringers 1,000 ml Med 10/18/19 07:30 Active IV ASDIRECTED Medication Orders Dextrose/Lactated Ringer's (Dextrose 5%-Lactated Ringers) 1,000 mls @ 999 mls/hr IV ASDIRECTED HALLE Last Admin: 10/18/19 07:53 Dose: 999 mls/hr Documented by: ZHAO Labs: Laboratory Tests 10/18/19 10/18/19 10/18/19 Range/Units 07:33 07:33 07:33 WBC 12.08 H (3.98-10.04) K/mm3 RBC 5.36 H (3.98-5.22) M/mm3 Hgb 14.4 (11.2-15.7) gm/dl Hct 45.9 H (34.1-44.9) % MCV 85.6 (79.4-94.8) fl MCH 26.9 (25.6-32.2) pg MCHC 31.4 L (32.2-35.5) g/dl RDW Std Deviation 50.6 H (36.4-46.3) fL Plt Count 334 (182-369) K/mm3 MPV 10.8 (9.4-12.3) fl Neut % (Auto) 77.1 H (34.0-71.1) % Lymph % (Auto) 15.2 L (19.3-51.7) % [place] % (Auto) 5.6 (4.7-12.5) % Eos % (Auto) 1.7 (0.7-5.8) Baso % (Auto) 0.1 (0.1-1.2) % Neut # (Auto) 9.31 H (1.56-6.13) K/mm3 Lymph # (Auto) 1.84 (1.18-3.74) K/mm3 [place] # (Auto) 0.68 H (0.24-0.36) K/mm3 Eos # (Auto) 0.20 (0.04-0.36) K/mm3 Baso # (Auto) 0.01 (0.01-0.08) K/mm3 Manual Slide Review Abnormal smear Sodium 140 (136-145) mEq/L Potassium 4.2 (3.5-5.1) mEq/L Chloride 104 (98-107) mEq/L Carbon Dioxide 26 (21-32) mEq/L Anion Gap 14.2 (5-15) BUN 10 (7-18) mg/dL Creatinine 0.9 (0.55-1.02) mg/dL Est Cr Clr Drug Dosing 86.33 mL/min Estimated GFR (MDRD) > 60 (>60) mL/min BUN/Creatinine Ratio 11.1 L (14-18) Glucose 95 (74-106) mg/dL Calcium 8.7 (8.5-10.1) mg/dL Magnesium 1.8 (1.8-2.4) mg/dl Total Bilirubin 0.4 (0.2-1.0) mg/dL AST 13 L (15-37) U/L ALT 21 (14-59) U/L Alkaline Phosphatase 69 (46-116) U/L C-Reactive Protein 2.8 H* (<1.0) mg/dL Total Protein 7.6 (6.4-8.2) g/dl Albumin 3.3 L (3.4-5.0) g/dl Globulin 4.3 gm/dL Albumin/Globulin Ratio 0.8 L (1-2) Ketones 0.13 (0.0-0.3) mM C.difficile [id number] C. difficile Tox (PCR) 10/18/19 Range/Units 07:33 WBC (3.98-10.04) K/mm3 RBC (3.98-5.22) M/mm3 Hgb (11.2-15.7) gm/dl Hct (34.1-44.9) % MCV (79.4-94.8) fl MCH (25.6-32.2) pg MCHC (32.2-35.5) g/dl RDW Std Deviation (36.4-46.3) fL Plt Count (182-369) K/mm3 MPV (9.4-12.3) fl Neut % (Auto) (34.0-71.1) % Lymph % (Auto) (19.3-51.7) % [place] % (Auto) (4.7-12.5) % Eos % (Auto) (0.7-5.8) Baso % (Auto) (0.1-1.2) % Neut # (Auto) (1.56-6.13) K/mm3 Lymph # (Auto) (1.18-3.74) K/mm3 [place] # (Auto) (0.24-0.36) K/mm3 Eos # (Auto) (0.04-0.36) K/mm3 Baso # (Auto) (0.01-0.08) K/mm3 Manual Slide Review Sodium (136-145) mEq/L Potassium (3.5-5.1) mEq/L Chloride (98-107) mEq/L Carbon Dioxide (21-32) mEq/L Anion Gap (5-15) BUN (7-18) mg/dL Creatinine (0.55-1.02) mg/dL Est Cr Clr Drug Dosing mL/min Estimated GFR (MDRD) (>60) mL/min BUN/Creatinine Ratio (14-18) Glucose (74-106) mg/dL Calcium (8.5-10.1) mg/dL Magnesium (1.8-2.4) mg/dl Total Bilirubin (0.2-1.0) mg/dL AST (15-37) U/L ALT (14-59) U/L Alkaline Phosphatase (46-116) U/L C-Reactive Protein (<1.0) mg/dL Total Protein (6.4-8.2) g/dl Albumin (3.4-5.0) g/dl Globulin gm/dL Albumin/Globulin Ratio (1-2) Ketones (0.0-0.3) mM C.difficile [id number] Presumptive negative C. difficile Tox (PCR) Positive H Meds: Medications Generic Name Dose Route Start Last Admin Trade Name Freq PRN Reason Stop Dose Admin Dextrose/Lactated Ringer's 1,000 mls @ 999 mls/hr 10/18/19 07:30 10/18/19 07:53 Dextrose 5%-Lactated Ringers IV 999 mls/hr ASDIRECTED HALLE Administration Discontinued Medications Generic Name Dose Route Start Last Admin Trade Name Freq PRN Reason Stop Dose Admin Ondansetron HCl 4 mg 10/18/19 07:38 10/18/19 07:53 Zofran IVPUSH 10/18/19 07:39 4 mg ONETIME ONE Administration - Radiology Interpretation Free Text/Narrative:: 39-year-old female presents to the ED with 2-day history of diarrhea. Associated nausea but no vomiting. She believes that she may have contracted foodborne illness from eating at a local [employer] restaurant. Symptoms started after eating out the night before. On average she is having between 10 and 16 but loose stools per day. She was also on antibiotics about a month ago for urinary tract infection but developed no diarrhea shortly after finishing the antibiotics. No shaded intermittent lower abdominal cramping pain. She has been trying to keep down Gatorade and water and has not vomited. Clinically suspect foodborne illness. She will have stools hopefully collected for WBCs and C. difficile. IV will be D5 lactated Ringer's at open. Given Zofran 4 mg IV for nausea relief. - Re-Assessments/Exams Free Text/Narrative Re-Assessment/Exam: 10/18/19 08:16 WBC count is mildly elevated at 12.08 with 77% neutrophils. Hemoglobin is 14.4 with hematocrit of 45.9. Platelet count 334,000. 10/18/19 08:35 Chemistry reveals a sodium 140 potassium of 4.2. Chloride 104 with a bicarb of 26. Anion gap is 14.2. BUN is 10 with a creatinine of 0.9. GFR is greater than 60. Glucose 95 calcium 8.7 magnesium is 1.8. Liver function normal. C-reactive protein elevated at 2.8. Total protein 7.6 with an albumin fraction of 3.3. Serum ketones 0.13. Normal. She has passed a stool for evaluation in the department. Going to go ahead and treat her with Cipro 500 twice daily for the next 6 days. 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 Advised dairy free diet and no apple juice or grape juice until stools are formed back up. Clear fluid diet and advance as tolerated 10/18/19 09:12 patient has been discharged. Stool sample she provided shows no white blood cells present. C. difficile toxin has not yet been obtained. 10/18/19 09:50 2 all results are positive for C. difficile enterotoxin. I did speak to the patient per phone as she had been discharged. Phone Flagyl 500 mg 3 times daily to [place] pharmacy at [facility] Departure - Departure Time of Disposition: 08:39 Disposition: Home, Self-Care 01 Condition: Fair Clinical Impression: Foodborne gastroenteritis - Discharge Information *PRESCRIPTION DRUG MONITORING PROGRAM REVIEWED*: Not Applicable *COPY OF PRESCRIPTION DRUG MONITORING REPORT IN PATIENT RANDY: Not Applicable Prescriptions: Dicyclomine [Bentyl] 20 mg PO Q6H PRN #8 tablet PRN Reason: Abdominal cramps/diarrhea metroNIDAZOLE [Flagyl] 500 mg PO Q8H #24 tab Instructions: Diarrhea, Adult, [id number] Referrals: PCP,None [Primary Care Provider] - Forms: ED Department Discharge, ED Return to Work/School Form Additional Instructions: Valuation in the emergency room today in regards to 2 a day history of significant diarrhea with associated abdominal cramping pain and nausea. You have been taking adequate fluids and using Gatorade which has maintained your normal electrolyte status. Blood work did not show anything abnormal other than suggest of a underlying bacterial infection. Still testing proved to be positive for C. difficile enteritis which we call antibiotic induced colitis. Suggest treatment with antibiotic Flagyl 500 mg TID for the next 8 days. Bentyl 20 mg by mouth every 6 hours as needed for relief of abdominal cramping pain and/or diarrhea stool. Diet should be continued clear fluids particularly Gatorade and or Powerade. Should avoid all dairy products and no apple juice or grape juice until stools are formed back up. When hungry try soda crackers first. If tolerated may advance to jam on white bread etc. Jell-O is okay at any time. Then advance to clear broth soup or chicken noodle/turkey rice and advance diet as tolerated. Expect diarrhea to be markedly improved usually 48 hours after antibiotics have been started. 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 Sepsis Event Note (ED) - Evaluation Sepsis Screening Result: No Definite Risk - Focused Exam Vital Signs: Vital Signs Temp Pulse Resp BP Pulse Ox 10/18/19 07:07 36.4 C 92 18 127/71 100 - My Orders Last 24 Hours: My Active Orders 10/18/19 07:30 Dextrose 5%-Lactated Ringers 1,000 ml IV ASDIRECTED 10/18/19 07:33 C DIFFICILE TOXIN IMMUNOASSAY [MREF] Stat MISC TEST Stat - Assessment/Plan Last 24 Hours: My Active Orders 10/18/19 07:30 Dextrose 5%-Lactated Ringers 1,000 ml IV ASDIRECTED 10/18/19 07:33 C DIFFICILE TOXIN IMMUNOASSAY [MREF] Stat MISC TEST Stat
[2019-10-18] MEDS ORDERED: Dextrose 5%-Lactated Ringers 1,000 ML IV SCH (07:30)
[2019-10-18] MEDS ORDERED: Ondansetron 4 MG/2 ML SDV IVPUSH ONE (07:38)
== END 2019-10-18 09:17 | disposition home or self-care (01) ==
LOC: JD.ED 06:56
DX: A05.9 Bacterial foodborne intoxication, unspecified (principal); I10 Essential (primary) hypertension; F17.210 Nicotine dependence, cigarettes, uncomplicated
CPT/HCPCS: 36415; 80053; 82009; 83735; 85025; 86140; 87324; 87493; 89055; 96361; 96374; 99284; J2405; J7121; 99283

== ENCOUNTER 2022-01-01 10:35 | Emergency (ER) | payer BC, MEDICAID | END 2022-01-01 12:42 | disposition home or self-care (01) | LOC: JD.ED 10:35 | DX: S16.1XXA Strain of muscle, fascia and tendon at neck level, initial encounter (principal); S29.012A Strain of muscle and tendon of back wall of thorax, initial encounter; I10 Essential (primary) hypertension; F17.210 Nicotine dependence, cigarettes, uncomplicated; W22.09XA Striking against other stationary object, initial encounter | CPT/HCPCS: 72040; 72040-26; 72070; 72070-26; 99283 ==

== ENCOUNTER 2022-07-30 22:38 | Emergency (ER) | payer MEDICAID ==
[2022-07-30 23:37] LABS: ESTIMATED GFR 83 mL/min (>60)
== END 2022-07-31 00:20 | disposition home or self-care (01) ==
LOC: JD.ED 22:38
DX: Z32.01 Encounter for pregnancy test, result positive (principal); I10 Essential (primary) hypertension; Z72.0 Tobacco use
CPT/HCPCS: 36415; 80053; 81003; 81025; 85025; 99284

== ENCOUNTER 2023-08-11 09:28 | Emergency (ER) | payer MEDICAID ==
[2023-08-11] MEDS: Ketorolac 60 MG/2 ML SDV IM ONE (11:21)
== END 2023-08-11 11:31 | disposition home or self-care (01) ==
LOC: JD.ED 09:28
DX: S63.502A Unspecified sprain of left wrist, initial encounter (principal); I10 Essential (primary) hypertension; Z79.899 Other long term (current) drug therapy; X50.1XXA Overexertion from prolonged static or awkward postures, initial encounter
CPT/HCPCS: 73110; 96372; 99283; J1885

== ENCOUNTER 2023-10-16 01:33 | Emergency (ER) | payer MEDICAID ==
[2023-10-16 02:34] LABS: BASOPHILS PERCENT AUTO 0.4 % (0.0-1.0); EOSINOPHILS ABSOLUTE AUTO 0.3 K/mm3 (0.0-0.4); EOSINOPHILS PERCENT AUTO 3.1 % (0.0-6.0); HEMATOCRIT 43.8 % (37.0-47.0); HEMOGLOBIN 13.7 gm/dl (12.0-16.0); IMMATURE GRAN ABSOLUTE AUTO 0.02 K/mm3 (0.00-0.05); IMMATURE GRAN PERCENT AUTO 0.3 % (0.0-0.4); LYMPHOCYTES ABSOLUTE AUTO 1.8 K/mm3 (1.0-4.8); LYMPHOCYTES PERCENT AUTO 22.6 % (24.0-44.0); MEAN CORPUSCULAR HEMOGLOBIN 25.9 pg (28.0-32.0); MEAN CORPUSCULAR HGB CONC 31.3 g/dl (32.0-36.0); MEAN PLATELET VOLUME 10.5 fl (9.4-12.3); MONOCYTES ABSOLUTE AUTO 0.6 K/mm3 (0.0-0.8); MONOCYTES PERCENT AUTO 7.8 % (0.0-8.0); NEUTROPHILS ABSOLUTE AUTO 5.3 K/mm3 (1.8-7.7); NEUTROPHILS PERCENT AUTO 65.8 % (41.0-71.0); PLATELET COUNT,PLT 316 K/mm3 (150-400); RED BLOOD CELL COUNT 5.28 M/mm3 (4.10-5.30); WHITE BLOOD CELL COUNT,WBC 7.98 K/mm3 (3.9-11.3)
[2023-10-16 02:41] LABS: A/G RATIO 0.8 (1-2); ALBUMIN 3.4 g/dl (3.4-5.0); ANION GAP 15.1 (5-15); BILIRUBIN TOTAL 0.3 mg/dL (0.2-1.0); BUN/CREATININE RATIO 14.4 (14-18); CALCIUM 8.5 mg/dL (8.5-10.1); CREATININE 0.9 mg/dL (0.55-1.02); EST CRCL DRUG DOSING (CG) 79.99 mL/min; POTASSIUM,K 4.1 mEq/L (3.5-5.1); PROTEIN TOTAL,TP 7.8 g/dl (6.4-8.2)
[2023-10-16] MEDS: Azithromycin 250 MG Tab PO ONE (03:45)
== END 2023-10-16 03:52 | disposition home or self-care (01) ==
LOC: JD.ED 01:33
DX: J06.9 Acute upper respiratory infection, unspecified (principal); I10 Essential (primary) hypertension; F17.210 Nicotine dependence, cigarettes, uncomplicated
CPT/HCPCS: 36415; 71046; 80053; 84484; 85025; 93005; 99285; A9270; 93010; 99284

== ENCOUNTER 2024-06-06 12:11 | Emergency (ER) | payer OTHER, MEDICAID | END 2024-06-06 14:00 | disposition home or self-care (01) | LOC: JD.ED 12:11 | DX: S90.111A Contusion of right great toe without damage to nail, initial encounter (principal); I10 Essential (primary) hypertension; W20.8XXA Other cause of strike by thrown, projected or falling object, initial encounter; Y99.0 Civilian activity done for income or pay | CPT/HCPCS: 99283 ==

== ENCOUNTER 2024-06-17 23:20 | Emergency (ER) | payer MEDICAID, OTHER ==
[2024-06-18 00:10] LABS: BASOPHILS PERCENT AUTO 0.2 % (0.0-1.0); EOSINOPHILS ABSOLUTE AUTO 0.2 K/mm3 (0.0-0.4); EOSINOPHILS PERCENT AUTO 1.6 % (0.0-6.0); HEMATOCRIT 41.9 % (37.0-47.0); IMMATURE GRAN ABSOLUTE AUTO 0.02 K/mm3 (0.00-0.05); IMMATURE GRAN PERCENT AUTO 0.2 % (0.0-0.4); LYMPHOCYTES ABSOLUTE AUTO 2.8 K/mm3 (1.0-4.8); LYMPHOCYTES PERCENT AUTO 30.1 % (24.0-44.0); MEAN CORPUSCULAR HEMOGLOBIN 26.6 pg (28.0-32.0); MEAN CORPUSCULAR VOLUME 85.7 fl (83.0-99.0); MONOCYTES ABSOLUTE AUTO 0.5 K/mm3 (0.0-0.8); MONOCYTES PERCENT AUTO 5.7 % (0.0-8.0); NEUTROPHILS ABSOLUTE AUTO 5.8 K/mm3 (1.8-7.7); NEUTROPHILS PERCENT AUTO 62.2 % (41.0-71.0); PLATELET COUNT,PLT 256 K/mm3 (150-400); RED BLOOD CELL COUNT 4.89 M/mm3 (4.10-5.30); WHITE BLOOD CELL COUNT,WBC 9.36 K/mm3 (3.9-11.3)
[2024-06-18 00:31] LABS: INR 0.97; PROTHROMBIN TIME 10.3 SECONDS (9.7-12.0)
[2024-06-18 00:39] LABS: A/G RATIO 0.8 (1-2); ALBUMIN 3.2 g/dl (3.4-5.0); ANION GAP 11.2 (5-15); BILIRUBIN TOTAL 0.3 mg/dL (0.2-1.0); BUN/CREATININE RATIO 12.5 (14-18); CALCIUM 8.6 mg/dL (8.5-10.1); CREATININE 0.8 mg/dL (0.55-1.02); EST CRCL DRUG DOSING (CG) 89.08 mL/min; POTASSIUM,K 4.2 mEq/L (3.5-5.1); PROTEIN TOTAL,TP 7.2 g/dl (6.4-8.2)
[2024-06-18] MEDS: Morphine 4 MG/ML Syringe IVPUSH ONE (01:09)
[2024-06-18] MEDS: Ondansetron 4 MG/2 ML SDV IVPUSH ONE (01:09)
[2024-06-18] MEDS: Misoprostol 100 MCG Tab PO ONE (01:40)
== END 2024-06-18 01:44 | disposition home or self-care (01) ==
LOC: JD.ED 23:20
DX: O03.9 Complete or unspecified spontaneous abortion without complication (principal); I10 Essential (primary) hypertension; F17.210 Nicotine dependence, cigarettes, uncomplicated
CPT/HCPCS: 36415; 76817; 76817-26; 80053; 84702; 85025; 85610; 85730; 86900; 86901; 96374; 96375; 99284-25; A9270-GY; J2270; J2405